=== PATIENT | male | born 1975 | race Caucasian/White ===

== ENCOUNTER → 2016-06-02 | Outpatient (CLI) | payer OTHER ==
--- NOTE | 2016-06-02 12:03 | MRI ---
EXAM DESCRIPTION: MRI of the cervical spine CLINICAL HISTORY: CERVICAL RADICULOPATHY COMPARISON: None. TECHNIQUE: Multiplanar MRI of the cervical spine was performed without contrast. GENERAL Cervical vertebral body alignment is unremarkable.Vertebral body heights are maintained. The craniocervical and atlantoaxial junctions are unremarkable. No aggressive osseous lesion. C2-3 No significant findings. C3-4 Mild bilateral neural foraminal narrowing from uncovertebral joint hypertrophy. 2 mm broad-based posterior disc protrusion. The midline diameter of the spinal canal is mildly narrowed to 9 mm. C4-5 Mild bilateral neural foraminal narrowing from uncovertebral joint hypertrophy. 2 mm broad-based posterior disc protrusion. Minimal cord flattening noted. The midline diameter of the spinal canal is mildly narrowed to 9 mm. C5-6 Mild bilateral neural foraminal narrowing from uncovertebral joint hypertrophy. 3 mm broad-based posterior disc protrusion. Minimal cord flattening noted. The midline diameter of the spinal canal is mildly narrowed to 7 mm. C6-7 3 mm- 4 mm broad-based posterior disc osteophyte complex results in cord contact. The midline diameter of the spinal canal is narrowed to 7.5 mm. No myelomalacia. There is severe right neural foraminal narrowing and mild left neural foraminal narrowing from uncovertebral joint hypertrophy. C7-T1 No significant findings. IMPRESSION: Spinal canal narrowing from C3-C4 through C6-C7 with cord contact at C4-5, C5-6 and C6-7. Negative for myelomalacia at any level. Multilevel neural foraminal narrowing as described above. Electronically signed by: Marcus Whitman MD 06/02/2016 12:02
== END ==
LOC: MRI 09:09
PROVIDERS: ATTEND Family Medicine
DX: M54.12 Radiculopathy, cervical region (principal); M48.8X2 Other specified spondylopathies, cervical region

== ENCOUNTER → 2017-03-20 | Outpatient (CLI) | payer BC ==
--- NOTE | 2017-03-21 08:41 | MRI ---
EXAM DESCRIPTION: MRI left knee CLINICAL HISTORY: Left knee pain COMPARISON: None. TECHNIQUE: Multiplanar, multisequence MR images of the left knee FINDINGS: Globular intrameniscal signal in the periphery of the medial meniscus at the posterior horn/body junction abutting the inferior articular surface. No linear meniscal tear. Medial femorotibial cartilage intact No lateral meniscal tear or lateral femorotibial high-grade chondrosis or focal osteochondral lesion Chondrosis at the apex of the patella with high-grade chondral fissuring focally along the mid apex over about 1 cm. No subchondral marrow abnormality. Femoral trochlear chondral thinning and surface irregularity along the superior apex extending slightly into the lateral facet. Trochlear chondrosis over about 1.9 x 1.2 cm. No subchondral marrow abnormality ACL, PCL, MCL and fibular collateral ligaments are intact Biceps femoris, popliteus and iliotibial band tendons are intact. Focal proximal origin patellar tendinosis medially with a focal low-grade interstitial partial tear axial image 19 and sagittal image 9 Quadriceps tendon is normal. Prepatellar subcutaneous edema. Tendons of the posterior medial knee are intact Small joint effusion. Thin medial patellar plica. Intra-articular loose body behind the posterior horn medial meniscus measuring about 8 x 9 x 4 mm IMPRESSION: Small joint effusion. Intra-articular body in the posterior medial joint line Degenerative intrameniscal signal abutting the peripheral inferior articular surface at the posterior horn/body junction over small region. 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
== END | disposition home or self-care (01) ==
LOC: MRI 09:48
PROVIDERS: ATTEND Family Medicine
DX: M25.462 Effusion, left knee (principal)

== ENCOUNTER → 2017-04-04 | Outpatient (CLI) | payer BC ==
--- NOTE | 2017-04-05 18:07 | RAD ---
EXAM DESCRIPTION: Pelvis CLINICAL HISTORY: LEFT HIP PAIN COMPARISON: None. TECHNIQUE: AP pelvis FINDINGS: Mild degenerative changes are seen in the pubic symphysis. The pelvis is intact. No fracturing is detected. The left hip is normal in appearance. No fracturing is detected. IMPRESSION: Unremarkable pelvis. Electronically signed by: Khai Coyne MD 04/05/2017 6:06 PM [facility]
== END | disposition home or self-care (01) ==
LOC: RAD 08:11
PROVIDERS: ATTEND Orthopaedic Surgery
DX: M25.552 Pain in left hip (principal); Z01.818 Encounter for other preprocedural examination

== ENCOUNTER → 2017-04-12 | Outpatient (CLI) | payer BC | END | disposition home or self-care (01) | LOC: RESP 13:55 | PROVIDERS: ATTEND Orthopaedic Surgery | DX: Z01.818 Encounter for other preprocedural examination (principal) ==

== ENCOUNTER 2017-04-19 05:47 | Day surgery (SDC) | payer BC ==
--- NOTE | 2017-04-17 16:41 | HP ---
CHIEF COMPLAINT: Left knee pain. HISTORY OF PRESENT ILLNESS: Khai is a 41-year-old male with a history of pain in the left knee. He said this has been going on for several years and was told about 3 years ago he had a meniscal tear. He has had no recent trauma, but does state he has some popping associated with this. He says the pain typically progresses throughout the day and he has difficulty with walking by the end of the day. MRI did show evidence of meniscus tear as well as evidence of chondromalacia. We have talked about options and Khai has requested operative intervention. After discussing the risks, benefits and alternatives to that, the patient has given informed consent. PAST SURGICAL HISTORY: None. MEDICATIONS: None. ALLERGIES: NO KNOWN DRUG ALLERGIES. Date CODE STATUS: Full code. IMMUNIZATIONS: Up to date. SOCIAL HISTORY: The patient does not drink, smoke or use any illicit drugs. FAMILY HISTORY: None pertinent to today's complaint. REVIEW OF SYSTEMS: Negative except as indicated in the History of Present Illness. PHYSICAL EXAMINATION: VITAL SIGNS: Blood pressure 135/88. Pulse 77. Height 6'2". Weight 289. MENTAL STATUS: The patient is awake, alert, and is able to give a good history and participate in the physical. The patient is oriented to person, place and time. SKIN: Normal tone and turgor. MUSCULOSKELETAL: He is very tender to palpation along both the medial and lateral joint-lines. It seems to be worse on the medial joint-line. He has intact sensation. The extremity is warm and well perfused. He has no varus/ valgus or anterior/posterior laxity. He has no deformity. He does have some minor clicking with full extension of the extremity. He cannot down into the squatted position because of pain. IMAGING: X-rays show some minor arthritic changes. Those changes are confirmed on MRI as Is a tear of the meniscus. ASSESSMENT: 1. Meniscus tear. 2. Chondromalacia. PLAN: The plan at this point is for knee arthroscopy. We have discussed the risks, benefits, and alternatives to that and the patient has given informed consent. #[id number] [facility]
[2017-04-19] MEDS ORDERED: SODIUM CHL 0.9% 100ML MINI-BAG 100 ML IVPB ONE (05:49)
[2017-04-19] MEDS ORDERED: LACTATED RINGERS 1,000 ML ONE (05:49)
[2017-04-19] MEDS ORDERED: ceFAZolin SODIUM 1 GM VIAL ONE ×3 (05:50→07:21)
[2017-04-19] MEDS ORDERED: BUPIVACAINE 0.25% W/EPI 50 ML VIAL INJ ONE (06:30)
[2017-04-19] MEDS ORDERED: MIDAZOLAM INJ 2 MG/2 ML VIAL ONE (06:47)
[2017-04-19] MEDS ORDERED: ROCURONIUM BROMIDE 10 MG/ML VIAL ONE (06:47)
[2017-04-19] MEDS ORDERED: fentaNYL CITRATE INJ 50 MCG/ML AMP ONE (06:47)
[2017-04-19] MEDS: VANCOMYCIN HCL INJ 1,000 MG VIAL IVPB ONE ×2 (07:35→08:05)
[2017-04-19] MEDS: ceFAZolin SODIUM 1 GM VIAL ONE ×2 (07:35→08:05)
[2017-04-19 08:58] VITALS: BP 114/72; TEMP 98.1; O2SAT 96
[2017-04-19] MEDS ORDERED: METOCLOPRAMIDE HCL INJ 10 MG/2 ML VIAL IV ONE (10:00)
[2017-04-19] MEDS ORDERED: DEXAMETHASONE INJ 10 MG/ML VIAL IV ONE (10:00)
[2017-04-19] MEDS ORDERED: LIDOCAINE 1% 10 ML VIAL INJ ONE (10:00)
[2017-04-19] MEDS ORDERED: raNITIdine HCL INJ 25 MG/ML VIAL IV ONE (10:00)
[2017-04-19] MEDS ORDERED: PROPOFOL 200 MG/20 ML VIAL IV ONE (10:00)
[2017-04-19] MEDS ORDERED: KETOROLAC TROMETHAMINE INJ 30 MG/ML VIAL IV ONE (10:00)
--- NOTE | 2017-04-19 10:24 | OP ---
DATE OF PROCEDURE: 04/19/17 PREOPERATIVE DIAGNOSIS: 1. Knee pain, possible meniscus tear. POSTOPERATIVE DIAGNOSIS: 1. Two loose bodies in the knee. 2. 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 3. Tear of the medial meniscus of the anterior horn. PROCEDURE: 1. Removal of loose bodies. 2. Debridement. SURGEON: Frandy Burns MD. SOAP INSPECTOR: David Pierre CST, -C. ANESTHESIA: General. COMPLICATIONS: None. FINDINGS: 1. Loose body measuring about 7 by 3 mm in the medial compartment. 2. Flap tear of the anterior horn of the medial meniscus. 3. Normal medial femoral condyle. 4. Normal anterior cruciate ligament. 5. Normal posterior cruciate ligament. 6. Approximately 3 by 2 mm loose body in the lateral compartment. 7. Normal and stable lateral meniscus. 8. Normal lateral gutter. 9. Normal suprapatellar pouch. 10. Full thickness defect in the trochlear groove with unstable flap of cartilage. 11. Chondromalacia of the patella. 12. Normal medial gutter. INDICATION: Khai has a history of pretty severe pain, especially at the end of the day. Khai has had some mechanical symptoms associated with that. He has had no recent direct trauma associated with this. Because of his ongoing pain and failure of conservative measures, he requested operative intervention. After discussing the risks, benefits and alternatives to that, the patient has given informed consent. PROCEDURE: The patient was brought to the Operating Room and placed in supine position. General anesthesia was induced and the patient's leg was sterilely prepped and draped. Following prepping and draping, standard anteromedial and anterolateral portals were established. Diagnostic arthroscopy was carried out with the above findings. Attention was focused on the flap tear of the medial meniscus. Using a 3.5 mm full radius shaver, the tear was addressed. Following addressing the tear, attention was focused then on the loose body. The loose body was removed and all debris was removed. Following that, the loose body within the lateral compartment was identified. The loose body was removed. An accessory superolateral portal was and the patellofemoral joint was identified. Following that, a 3.5 mm full radius shaver was used to debride the patellofemoral compartment. The flap of cartilage was thoroughly probed to ensure complete removal. Following that, the knee was thoroughly irrigated and drained. Following draining of the knee, the wounds were closed with Nylon suture. Sterile dressings were placed. The patient was awoken from anesthesia and taken to Recovery. POSTOPERATIVE INSTRUCTIONS: The patient will be nonweightbearing and will followup with us in two days. #[id number] [facility]
== END 2017-04-19 09:40 | disposition home or self-care (01) ==
LOC: AMB 05:47
PROVIDERS: ATTEND Orthopaedic Surgery
DX: M23.212 Derangement of anterior horn of medial meniscus due to old tear or injury, left knee (principal); M22.42 Chondromalacia patellae, left knee; M23.42 Loose body in knee, left knee; R94.31 Abnormal electrocardiogram [ECG] [EKG]
CPT/HCPCS: 01400; 29877; J0690; J1100; J1885; J2250; J2765; J2780; J3010; J3370; J3490; J7050; J7120

== ENCOUNTER → 2018-02-21 | Outpatient (CLI) | payer BC | LOC: GMAM 14:57 | PROVIDERS: ATTEND Family Medicine | DX: Z00.00 Encounter for general adult medical examination without abnormal findings (principal) ==

== ENCOUNTER → 2018-03-09 | Outpatient (CLI) | payer BC | LOC: GMAM 10:48 | PROVIDERS: ATTEND Family Medicine | DX: Z82.69 Family history of other diseases of the musculoskeletal system and connective tissue (principal) ==

== ENCOUNTER → 2018-03-16 | Outpatient (CLI) | payer BC ==
--- NOTE | 2018-03-16 14:25 | MRI ---
MRI right knee without contrast INDICATION: Knee pain medial side no specific injury TECHNIQUE: Noncontrast MR imaging right knee FINDINGS: Large joint effusion. Mild lateral patellar tracking. Minimal patellofemoral chondrosis. Moderate Cote's cyst with mild fluid extravasation. Cruciate ligaments are intact. Extensor tendons are intact. There is mild free edge fraying/truncation posterior horn medial meniscus. There is an oblique complex undersurface tear posterior horn without displaced fragment identified. Mild free edge degenerative fraying lateral meniscus. No advanced arthrosis. Grade 1 MCL edema sprain versus reactive. Lateral collateral structures are intact. Subchondral edema medial tibial plateau related to the adjacent meniscal tear and possibly chondral fissuring. Mild chondrosis grade 2 lateral tibial plateau. IMPRESSION: Partial medial meniscal extrusion along the medial jointline with undersurface and free edge tear body and posterior horn medial meniscus Mild degenerative change lateral meniscus knee. Large joint effusion Reactive subchondral edema/stress reaction medial tibial plateau Chondrosis of the knee without end-stage arthrosis Small to moderate Cote's cyst Lateral patellar tracking Grade 1 MCL edema reactive versus mild sprain Electronically signed by: Jm Israel MD 03/16/2018 2:24 PM CDT
== END ==
LOC: MRI 10:07
PROVIDERS: ATTEND Family Medicine
DX: S83.241A Other tear of medial meniscus, current injury, right knee, initial encounter (principal); M25.461 Effusion, right knee; M71.21 Synovial cyst of popliteal space [Baker], right knee; M94.8X6 Other specified disorders of cartilage, lower leg

== ENCOUNTER → 2018-03-23 | Outpatient (CLI) | payer BC ==
--- NOTE | 2018-03-23 13:20 | US ---
EXAM DESCRIPTION: Gall Bladder: ULTRASOUND. CLINICAL HISTORY: ELEVATED LFT'S R94.5 COMPARISON: None. TECHNIQUE: Transabdominal scanning: Moseley-scale and Doppler modes. Patient large body habitus. FINDINGS: Gallbladder: normal size, shape, echogenicity; no intraluminal stones or sludge. No fluid around the gallbladder. No wall thickening. 1 mm. Non-tender with transducer pressure. Common bile duct: caliber 3.0 mm within normal limits. Liver: Minimally increased echogenicity; contour liver capsule smooth where seen. No fluid around the liver. Intrahepatic biliary ducts normal caliber. Doppler hepatopedal flow portal vein.. Long axis right lobe 14.2 Pancreas: normal size and echogenicity. Duct not seen. Aorta: Normal caliber from the proximal segment to the distal bifurcation. Right kidney: 11.2 cm Long axis. Normal cortical thickness and echogenicity. No hydronephrosis or perinephric edema. IMPRESSION: 1. Minimal steatosis of the liver with no enlargement. Normal ducts in vascularity. Smooth capsule with no ascites. 2. Gallbladder and common bile duct unremarkable. 3. Negative findings in the pancreas. No ascites. Right kidney is unremarkable. Electronically signed by: David Cochran MD 03/23/2018 1:19 PM [facility]
== END ==
LOC: US 08:24
PROVIDERS: ATTEND Family Medicine
DX: R94.5 Abnormal results of liver function studies (principal); K76.0 Fatty (change of) liver, not elsewhere classified

== ENCOUNTER → 2018-03-29 | Outpatient (CLI) | payer BC | LOC: RESP 11:10 | PROVIDERS: ATTEND Orthopaedic Surgery | DX: Z01.818 Encounter for other preprocedural examination (principal) ==

== ENCOUNTER 2018-04-17 05:52 | Day surgery (SDC) | payer BC ==
--- NOTE | 2018-04-16 08:36 | HP ---
CHIEF COMPLAINT: Right knee pain. HISTORY OF PRESENT ILLNESS: Khai is a 42-year-old male with a history of pain in the right knee that has been going on for about 5 weeks. He had a twisting injury to the knee at that time. He has had popping, but has not had any gross locking. He says the pain has caused him difficulty at work. He has an MRI which does show some tearing of the meniscus. He does also have chondromalacia. Because of his popping with pain and MRI findings, we talked about options for him that would include surgical intervention. He has elected to undergo knee arthroscopy. After discussing the risks, benefits and alternatives to that, the patient has given informed consent. PAST SURGICAL HISTORY: 1. Knee arthroscopy. MEDICATIONS: None. ALLERGIES: CODEINE. CODE STATUS: Full code. IMMUNIZATIONS: Up to date. FAMILY HISTORY: None pertinent to today's complaint. SOCIAL HISTORY: The patient denies alcohol, drug and tobacco use. REVIEW OF SYSTEMS: Negative except as indicated in the History of Present Illness. PHYSICAL EXAMINATION: VITAL SIGNS: Blood pressure 144/97. Pulse 83. Height 6'3". Weight 290 pounds. MENTAL STATUS: The patient is awake, alert, and is able to give a good history and participate in the physical. The patient is oriented to person, place and time. SKIN: Normal tone and turgor. MUSCULOSKELETAL: He is very tender on the medial aspect of the knee. He has full extension. Flexion is to about 120 degrees. The extremity is warm and well perfused. Sensation is intact. There is no anterior/posterior or varus/ valgus laxity. He does not have an effusion present today. IMAGING: MRI does show evidence of meniscal pathology. PLAN: After discussing the risks, benefits, and alternatives to outpatient, he has given informed consent. #[id number] [facility]
--- NOTE | 2018-04-16 10:07 | RAD ---
EXAM DESCRIPTION: Chest,2 Views CLINICAL HISTORY: 42 years Male, pre op COMPARISON: None. TECHNIQUE: Frontal and lateral views of the chest. IMPRESSION: Cardiac silhouette is normal in size. Mild elevation of the right hemidiaphragm. No focal or masslike consolidation. No pleural effusion or pneumothorax. Thoracic spondylosis without acute compression deformity appreciated. Electronically signed by: Clark Gordon MD 04/16/2018 10:06 AM [facility]
[2018-04-17] MEDS ORDERED: ceFAZolin SODIUM 1 GM VIAL ONE ×2 (07:57→08:15)
[2018-04-17] MEDS ORDERED: SODIUM CHL 0.9% 100ML MINI-BAG 100 ML IVPB ONE (07:57)
[2018-04-17] MEDS ORDERED: BUPIVACAINE 0.5% 30 ML VIAL INJ ONE (08:15)
[2018-04-17] MEDS ORDERED: DEXAMETHASONE INJ 10 MG/ML VIAL IV ONE (10:00)
[2018-04-17] MEDS ORDERED: PROPOFOL 200 MG/20 ML VIAL IV ONE (10:00)
[2018-04-17] MEDS ORDERED: LIDOCAINE 1% 10 ML VIAL INJ ONE (10:00)
[2018-04-17] MEDS ORDERED: METOCLOPRAMIDE HCL INJ 10 MG/2 ML VIAL IV ONE (10:00)
[2018-04-17] MEDS ORDERED: raNITIdine HCL INJ 25 MG/ML VIAL IV ONE (10:00)
[2018-04-17] MEDS ORDERED: MIDAZOLAM INJ 2 MG/2 ML VIAL ONE ×2 (10:36→11:21)
[2018-04-17] MEDS ORDERED: fentaNYL CITRATE INJ 50 MCG/ML AMP ONE (10:37)
[2018-04-17] MEDS ORDERED: ROCURONIUM BROMIDE 10 MG/ML VIAL ONE (10:37)
[2018-04-17] MEDS ORDERED: SUCCINYLCHOLINE CHLORIDE 200 MG/10 ML VIAL IV ONE (10:41)
[2018-04-17] MEDS: ceFAZolin SODIUM 1 GM VIAL ONE ×2 (11:28→11:46)
[2018-04-17] MEDS: VANCOMYCIN HCL INJ 1,000 MG VIAL IVPB ONE ×2 (11:28→11:46)
[2018-04-17] MEDS ORDERED: BUPIVACAINE LIPOSOME 13.3 MG/ML VIAL INJ ONE (11:34)
[2018-04-17] MEDS ORDERED: SUGAMMADEX SODIUM 200 MG/2 ML VIAL IV ONE (11:55)
[2018-04-17] MEDS: LACTATED RINGERS 1,000 ML ONE ×2 (12:29→13:00)
[2018-04-17 13:36] VITALS: BP 121/80; TEMP 97.6; O2SAT 95
--- NOTE | 2018-04-19 09:44 | OP ---
DATE OF PROCEDURE: 04/17/18 PREOPERATIVE DIAGNOSIS: 1. Chondromalacia. 2. Meniscus tear. POSTOPERATIVE DIAGNOSIS: 1. Chondromalacia. 2. Meniscus tear. PROCEDURE: 1. Partial meniscectomy. 2. Chondroplasty. SURGEON: Frandy Burns MD. PATIENT NAVIGATOR: David Pierre CST, SA-C. ANESTHESIA: General anesthesia. COMPLICATIONS: None. FINDINGS: 1. Tear in the posterior horn of the meniscus with a small flap component. 2. Chondromalacia and softening of the cartilage in the medial compartment. 3. Normal anterior cruciate ligament, normal posterior cruciate ligament. 4. Normal lateral meniscus. 5. Slight softening of the cartilage in the lateral compartment. 6. Normal lateral gutter. 7. Normal suprapatellar pouch. 8. Minimal softening of the cartilage in the patellofemoral joint. 9. Normal medial gutter. INDICATION: Mr. Casas has a history of pain that has been getting progressively worse. He has not had any gross locking, but does have occasional popping. Because of his problems with his discomfort at work, he has requested intervention. After discussing the risks, benefits and alternatives to operative therapy, the patient has given informed consent. PROCEDURE: The patient was brought to the Operating Room and placed in supine position. General anesthesia was induced and the patient's leg was sterilely prepped and draped. Following prepping and draping, standard anteromedial and anterolateral portals were established. Diagnostic arthroscopy was carried out with the above findings. Attention was then focused on medial meniscus. A 3.5 mm full radius shaver was used to debride the meniscus while under valgus stress. The meniscus was thoroughly probed and there was no instability and no free flaps remaining. A 3.5 mm full radius shaver was used to debride the chondral surface of the femur. The wound was very thoroughly irrigated to ensure complete removal of all debris. The knee was drained. Following draining of the knee, the wounds were closed with Nylon suture. Sterile dressings were placed. The patient was awoken from anesthesia and taken to Recovery. POSTOPERATIVE PLAN: The patient will be nonweightbearing until followup with us in about two days. #[id number] [facility]
== END 2018-04-17 13:50 | disposition home or self-care (01) ==
LOC: AMB 05:52
PROVIDERS: ATTEND Orthopaedic Surgery
DX: M94.261 Chondromalacia, right knee (principal); M23.221 Derangement of posterior horn of medial meniscus due to old tear or injury, right knee; K21.9 Gastro-esophageal reflux disease without esophagitis; K76.0 Fatty (change of) liver, not elsewhere classified; E66.01 Morbid (severe) obesity due to excess calories; Z88.5 Allergy status to narcotic agent
CPT/HCPCS: 01400; 29881; 36415; 71046; 80048; 81001; 85025; 93005; J0330; J0690; J1100; J2250; J2765; J2780; J3010; J3370; J3490; J7050; J7120